=== PATIENT | female | born 1985 | race Caucasian/White ===

== ENCOUNTER → 2022-12-06 | Outpatient (CLI) | payer MEDICAID, SELFPAY ==
--- NOTE | 2022-12-06 13:20 | NEURO_ITS ---
NCS and/or EMG Patient Report Ordering Doctor: Aleks Fletcher DATE OF SERVICE: 12/06/22 Lena presents for electrodiagnostic testing of the upper limbs. She reports numbness and tingling in both hands. Electrodiagnostic findings: Prolonged median motor latency is noted bilaterally with normal amplitudes and reduced conduction velocities. Right and left ulnar motor responses are within normal limits. There is a prolonged right median F- wave. Prolonged median sensory latency at the wrist and palm. Normal ulnar and radial sensory responses. Needle EMG testing shows no evidence of denervation with normal motor unit action potentials. Electrodiagnostic impression: This is an abnormal study in the upper limbs 1. Electrodiagnostic findings are suggestive of bilateral median mononeuropathy. This is consistent with a moderate right carpal tunnel syndrome and a mild to moderate left carpal tunnel syndrome. Multi Select Codes Neurology Neurology Interp Codes: 07744-72 Musc test done w/n test comp (interp) (2) and 68501-65 Nrv cndj test 13/> studies (interp)
== END | disposition home or self-care (01) ==
LOC: PSN 12:02
PROVIDERS: PCP Family Medicine; Referring Provider Orthopaedic Surgery Sports Medicine; Visit Provider Orthopaedic Surgery Sports Medicine
DX: G56.03 Carpal tunnel syndrome, bilateral upper limbs (principal)
CPT/HCPCS: 95886; 95913

== ENCOUNTER 2022-12-27 05:51 | Day surgery (SDC) | payer MEDICAID, SELFPAY ==
[2022-12-27] VITALS (8 sets, daily range): BP systolic 92–119; BP diastolic 64–84; PULSE 74–83; RESP 14–16; TEMP 36.1–36.8; O2SAT 92–100; BMI 45.9
[2022-12-27 06:28] LABS: Internal QC Validated? YES +Cl - CLEAR BKGD; Pregnancy, Urine Negative Negative
[2022-12-27] MEDS: Lactated Ringers 1,000 ML 15 ML IV (06:38)
[2022-12-27] MEDS: Ipratropium/Albuterol Sulfate 3 ML AMPUL.NEB INHALATION (06:54)
--- NOTE | 2022-12-27 06:59 | PCM.HP.STD ---
HPI - General HPI Narrative LENA GONZALEZ, is a 37 F who presents for left endoscopic carpal tunnel release. Patient has no questions. They continue to experience symptoms going into the thumb and index finger. Left upper extremity marked at the wrist. Pros and cons risks and benefits of the surgery as well as postoperative recovery and plan for postoperative pain medications including local anesthetic at the incision site discussed with the patient. Follow-up in 2 days time they have an appointment for that. No changes to history and physical exam. Patient wishes to proceed. MR#: [id number] Acct: [id number] Name: LENA GONZALEZ Rep #: [id number] : 1985 Provider: Dr. Aleks Fletcher MD Age/Sex: 37/F Location: [facility] – [place].[facility] Status: Signed Intake Vital Signs 09/29/2309:46 Height 5 ft 3 in Weight: 260 lb BMI 46.0 Intake Visit Reasons: BL HANDS Chief Complaint: bilateral hand numbness Is patient in pain?: Yes Allergies lactose Allergy (Verified 12/11/22 10:47) Diarrhealatex Allergy (Verified 12/11/22 10:47) Rash Medications ibuprofen 200 mg tablet 200 mg PO Q6H PRN 09/29/22 [History Confirmed 12/11/22] quetiapine 50 mg tablet (Seroquel) 50 mg PO DAILY 09/29/22 [History Confirmed 12/11/22] venlafaxine 37.5 mg capsule,extended release 24 hr (Effexor XR) 37.5 mg PO DAILY 09/29/22 [History Confirmed 12/11/22] PFSH Medical History Bilateral carpal tunnel syndrome Cubital tunnel syndrome on right Family History Mother Hypertension Heart disease Bipolar 1 disorder Depression Anxiety Schizophrenia Social History Smoking Status: Current every day smoker tobacco type: cigarettes alcohol intake: never substance use type: does not use HPI BL HANDS Details: Parts of this documentation were recorded by a scribe, this documentation accurately reflects the service provided and the decisions made by me, Dr. Aleks Fletcher MD 12/11/22 5478. LENA GONZALEZ is a 37 year old F here today for follow-up nerve conduction studies for bilateral carpal tunnel syndrome. first four digits. RHD. worse on left per pt. clumsy. Supplemental Info [facility] Pulmonary Services/Neurology [address] [place] [address] MR#: [id number] Acct: [id number] Name: LENA GONZALEZ Rep #: [id number] : 1985 37 From: Iqra Mills MD Referring Dr: Aleks Fletcher MD Status: REG CLI Location: PSN Date: 12/06/22 Sex: F C NCS and/or EMG Patient Report Ordering Doctor: Aleks Fletcher DATE OF SERVICE: 12/06/22 Lena presents for electrodiagnostic testing of the upper limbs. She reports numbness and tingling in both hands. Electrodiagnostic findings: Prolonged median motor latency is noted bilaterally with normal amplitudes and reduced conduction velocities. Right and left ulnar motor responses are within normal limits. There is a prolonged right median F-wave. Prolonged median sensory latency at the wrist and palm. Normal ulnar and radial sensory responses. Needle EMG testing shows no evidence of denervation with normal motor unit action potentials. Electrodiagnostic impression: This is an abnormal study in the upper limbs 1. Electrodiagnostic findings are suggestive of bilateral median mononeuropathy. This is consistent with a moderate right carpal tunnel syndrome and a mild to moderate left carpal tunnel syndrome. Multi Select Codes Neurology Neurology Interp Codes: 75154-32 Musc test done w/n test comp (interp) (2) and 49899-98 Nrv cndj test 13/> studies (interp) Coding Level of Care Code Off vis,est,level 3 Diagnoses Bilateral carpal tunnel syndrome G56.03 Assessment and Plan Assessment and Plan (1) Bilateral carpal tunnel syndrome: Status: Acute Plan: 37 F with bilateral carpal tunnel syndrome. She feels subjectively its worse on the left although on the nerve studies that is mild to moderate on the left side and moderate on the right side. She would like to start with surgery on the left side as subjectively it is worse for her and she is right-hand dominant. This has been present for 4 years she states. We discussed steroid nonoperative options as well including bracing or injections however she would prefer to proceed with definitive management in the form of left endoscopic carpal tunnel release. Patient does not have diabetes and is not on a blood thinner therefore will not obtain a preoperative clearance. Pros and cons risks and benefits were discussed with the patient including but not limited to infection, pain, stiffness, bleeding, damage to surrounding structures, neurovascular injury, recurrence or retear, failure or wear of hardware or fixation, instability, fracture, deep vein thrombosis and pulmonary embolism, anesthetic risks, , patient dissatisfaction, need for further surgery and other risks. Patient understood and wished to proceed with surgery, and signed the informed consent documentation. [facility] Medical History (Updated 12/20/22 @ 08:46 by Jammie Ho) Anxiety Asthma Back pain Bilateral carpal tunnel syndrome Cubital tunnel syndrome on right Depression Difficulty chewing Gastric reflux History of pain when walking Hypertension Leg cramps Seizures Smoker Wears glasses Home Medications ibuprofen 200 mg tablet 200 mg PO Q6H PRN pain 09/29/22 [History Last Taken Unknown] quetiapine 50 mg tablet (Seroquel) 150 mg PO QHS 09/29/22 [History Last Taken 12/26/22] albuterol sulfate 90 mcg/actuation aerosol inhaler 2 puff inhalation Q4H PRN asthma 12/20/22 [History Last Taken Unknown] sertraline 50 mg tablet 50 mg PO DAILY 12/20/22 [History Last Taken 12/27/22] Allergy/AdvReac Type Severity Reaction Status Date / Time lactose Allergy Diarrhea Verified 12/27/22 06:26 latex Allergy Rash Verified 12/27/22 06:26 Family History Mother Hypertension Heart disease Bipolar 1 disorder Depression Anxiety Schizophrenia Surgical History (Updated 12/20/22 @ 08:46 by Jammie Ho) Hx of tooth extraction Social History Smoking Status: Current every day smoker tobacco type: cigarettes alcohol intake: never substance use type: does not use Vital Signs Vital Signs Vital Signs: 12/27/22 06:27 12/27/22 06:27 Temperature 96.9 F L Temperature Source Temporal Pulse Rate 79 Respiratory Rate 16 Respiratory Pattern Normal Blood Pressure 119/84 H Blood Pressure Mean 95 Blood Pressure Source Monitor Blood Pressure Position Semi-Fowlers Blood Pressure Location Right Arm Pulse Ox 97 Oxygen Delivery Method Room Air Weight Weight: 251 lb 5.231 oz Body Mass Index (BMI) 45.9 Results Lab / Micro Data Labs: Laboratory Results - last 24 hr 12/27/22 06:13: Urine Test Negative
[2022-12-27] MEDS: Cefazolin 2 GM in 0.9% Normal Saline 100 ML IV (07:38)
--- NOTE | 2022-12-27 07:48 | PCM.OPRPT ---
Problems Associated Problem List Diagnoses (1) Bilateral carpal tunnel syndrome: Report of Operation Date of Procedure: 12/27/22 Pre-Operative Diagnosis: left carpal tunnel syndrome Post-Operative Diagnosis: same Surgery/Procedure Performed:: left endoscopic carpal tunnel release Surgeon: Aleks Fletcher Type of Anesthesia: Local and MAC Anesthesiologist: Kumar Espinoza Estimated Blood Loss (mL): 5 Description of Procedure: Patient was brought to the operating room theater.? The patient was administered 2g iv ancef prior to the start of the procedure.? Placed supine on the operating room table.? Anesthesia induced.? SCDs on the legs.? Tourniquet applied to the left upper operative extremity, appropriately padded. Arm table used. Operative extremity prepped and draped in the usual sterile fashion with chlorhexidine-based prep solution allowing over 3 minutes drying time prior to draping.? Preoperative timeout performed to confirm the site patient and the surgery. Limb limb elevated tourniquet inflated to 250 mmHg.? I used the [facility] endoscopic carpal tunnel kit / technique. Exsanguinated limb. 6cc 0.25% bupivicaine at incision site. ? I made a transverse 2 cm incision in line with the? transverse wrist crease.? This was in line with the fourth digit.? I carried the dissection down through skin and subcutaneous tissue achieved meticulous hemostasis. Just ulnar to palmaris tendon.? I incised the antebrachial fascia.? I passed sequential dilators into the carpal tunnel along the radial border of the Guyon's canal aiming for the fourth digit with the hand in extension.? I used a synovial elevator to identify the transverse fibers of the transverse carpal tunnel ligament.? Passed the scope into the carpal tunnel. Once I had identified the full proximal and distal extent of the ligament I fully released the ligament under direct visualization by deploying the blade and slowly withdrawing the scope made sequential passes until I no longer felt tension as well as the entire extent of the ligament was released under direct visualization.? Sounded the tunnel with pineda tenotomy scissors, complete release, no bands. Arthroscope light was more visible through the skin. Pictures taken and saved. Wound thoroughly irrigated.? Tourniquet let down prior to end of the case and meticulous hemostasis achieved.? Thorough irrigation.? ? Incision closed with 3-0 ethilon for the skin.? Steri-Strips were applied after the skin was cleaned and dried. adaptic 4x4 gauze and kb. Patient woken up,? transferred off the operating room table and taken to postanesthetic care unit in stable condition. All sponge needle instrument counts were correct no complications.? Plan for the patient to be discharged home according to day surgery criteria when they are comfortable. Follow-up in the office in 2 days time. Gentle ROM hand and elbow no heavy [place] c[place] 54444 Complications none Admit VTE Documentation VTE Present on Admission: No VTE Mechan Device Prophylaxis: SCD's VTE Pharm Prophylaxis ordered?: No Reason prophylaxis not ordered:: Treatment Not Indicated Multi Select Codes Musculoskeletal Musculoskeletal CPT Codes: Other Procedure See Report
[2022-12-27] MEDS: Bupivacaine 0.25% 30 ML Vial (08:04)
--- NOTE | 2022-12-27 08:09 | DCINST_ITS ---
Discharge Instructions Diet Discharge Diet: No restrictions Activity Keep extremity elevated above heart level: Operative Extremity Additional Activity Instructions:: ROM ok of hand wrist elbow and fingers, no heavy lifting or gripping Dressing / Incision Call your doctor if your incision/area has: Continuous Slow Oozing, Sudden Increased Bleeding, Increased Pain/ Swelling, Increased Redness, Foul Smelling Discharge and Swelling at the incision site Remove Dressing in: leave in place till F/U Cleanse incision/area with: Do not get Incision Wet Follow Up Care Please Follow Up With: Aleks Fletcher MD When: 2 days Test Results: Test results from this visit will be discussed in further detail at your follow- up appointment, if applicable. Discharge Plan Admission Attending Provider: Aleks Fletcher Primary Care Provider: Kirstie Campbell Instructions Patient Instructions: Carpal Tunnel Release Surgery Discharge Orders/Prescriptions Prescriptions: No Action quetiapine [Seroquel] 50 mg tablet 150 mg PO QHS ibuprofen 200 mg tablet 200 mg PO Q6H PRN (Reason: pain) sertraline 50 mg tablet 50 mg PO DAILY Patient Comments: take 1/2 fo a a tablet for 7 days, on day 8 increase to 1 tablet a day albuterol sulfate 90 mcg/actuation HFA aerosol inhaler 2 puff inhalation Q4H PRN (Reason: asthma) Referrals / Follow Up: Kirstie Campbell DO [Primary Care Provider] - Aleks Fletcher MD [Med Staff - Active Staff] - Disposition Disposition (needs filled in before D/C Order can be placed): Home, Self Care
[2022-12-27] MEDS: HYDROcodone Bitartrate/Apap 5/325 Tablet PO (09:07)
== END 2022-12-27 09:11 | disposition home or self-care (01) ==
LOC: SDC 05:52 → AC 05:53
PROVIDERS: Anesthesiology; PCP Family Medicine; Referring Provider Orthopaedic Surgery Sports Medicine; Visit Provider Orthopaedic Surgery Sports Medicine
PROC: (CPT 29848; principal; 2022-12-27 07:15)
DX: G56.03 Carpal tunnel syndrome, bilateral upper limbs (principal); I10 Essential (primary) hypertension; F17.210 Nicotine dependence, cigarettes, uncomplicated; J45.909 Unspecified asthma, uncomplicated; Z79.899 Other long term (current) drug therapy
CPT/HCPCS: 29848; 01810; 81025; 94640; J7120; J2405

== ENCOUNTER 2023-03-21 05:59 | Day surgery (SDC) | payer MEDICAID, SELFPAY ==
[2023-03-21 06:20] LABS: Internal QC Validated? YES +Cl - CLEAR BKGD; Pregnancy, Urine Negative Negative
[2023-03-21] MEDS: Lactated Ringers 1,000 ML 15 ML IV (06:26)
[2023-03-21 06:27] VITALS: BP 114/87; PULSE 84; RESP 18; TEMP 36.1; O2SAT 99; BMI 47.2
--- NOTE | 2023-03-21 07:03 | PCM.HP.STD ---
HPI - General HPI Narrative LENA GONZALEZ, is a 37 F who presents for right endoscopic carpal tunnel release. no changes to h and p. OK to proceed. wrist marked. narcotic counselling, rab done. MR#: [id number] Acct: [id number] Name: LENA GONZALEZ Rep #: [id number] : 1985 Provider: Dr. Aleks Fletcher MD Age/Sex: 37/F Location: [facility] [place].[facility] Status: Signed Intake Vital Signs 12/27/2305:27 Height 5 ft 2 in Intake Visit Reasons: right hand Chief Complaint: right hand Accompanied by: Self Is patient in pain?: Yes Pain scale (1-10): 5 Allergies lactose Allergy (Verified 02/09/23 10:16) Diarrhealatex Allergy (Verified 02/09/23 10:16) Rash Medications ibuprofen 200 mg tablet 200 mg PO Q6H PRN pain 09/29/22 [History Confirmed 03/05/23] quetiapine 50 mg tablet (Seroquel) 150 mg PO QHS 09/29/22 [History Confirmed 03/05/23] albuterol sulfate 90 mcg/actuation aerosol inhaler 2 puff inhalation Q4H PRN asthma 12/20/22 [History Confirmed 03/05/23] sertraline 50 mg tablet 50 mg PO DAILY 12/20/22 [History Confirmed 03/05/23] cariprazine 1.5 mg capsule (Vraylar) 1.5 mg PO DAILY 02/09/23 [History Confirmed 03/05/23] PFSH Medical History Anxiety Asthma Back pain Bilateral carpal tunnel syndrome Cubital tunnel syndrome on right Depression Difficulty chewing Gastric reflux History of pain when walking Hypertension Leg cramps Seizures Smoker Wears glasses Surgical History Hx of tooth extraction Family History Mother Hypertension Heart disease Bipolar 1 disorder Depression Anxiety Schizophrenia Social History Smoking Status: Current every day smoker tobacco type: cigarettes alcohol intake: never substance use type: does not use HPI right hand Details: Parts of this documentation were recorded by a scribe, this documentation accurately reflects the service provided and the decisions made by me, Dr. Aleks Fletcher MD 03/05/23 0913. LENA GONZALEZ is a 37 year old F here today for FU bilat CTS. 9-week follow-up of a left endoscopic carpal tunnel release. Patient is doing well on the left side. Still some mild pillar pain when gripping a laundry basket but that happy and satisfied with how the operation is gone. They are desiring to have the same operation on the right side of the thumb index and middle finger somewhat into the ring goes numb. Ortho Exam General General: Yes no acute distress Neurologic: Yes alert and Yes oriented x3 Psychologic: Yes reasonable and appropriate Right Wrist/Hand Skin/Wound: Yes CDI, No Ecchymosis and Yes nail intact Right Wrist: Yes ROM-Extension 0-60, ROM-Flexion 0-80, ROM-Pronation 0-80, ROM-Supination 0-90, Tinel's, Phalen's and Thenar Atrophy; No Hypothenar Atrophy Motor: EPL: 5, FDP-2: 5, 1st Dorsal Interosseous: 5 and APB: 5 Sensation: Radial: I, Ulnar: I and Median: D WRIST: neg tinels at elbow Left Wrist/Hand Skin/Wound: Yes CDI, Yes healed, No Ecchymosis, No nail intact, Yes capillary refill normal and No erythema Motor: EPL: 5, FDP-2: 5, 1st Dorsal Interosseous: 5 and APB: 5 Sensation: Radial: I, Ulnar: I and Median: I Supplemental Info DATE OF SERVICE: 12/06/22 Lena presents for electrodiagnostic testing of the upper limbs. She reports numbness and tingling in both hands. Electrodiagnostic findings: Prolonged median motor latency is noted bilaterally with normal amplitudes and reduced conduction velocities. Right and left ulnar motor responses are within normal limits. There is a prolonged right median F-wave. Prolonged median sensory latency at the wrist and palm. Normal ulnar and radial sensory responses. Needle EMG testing shows no evidence of denervation with normal motor unit action potentials. Electrodiagnostic impression: This is an abnormal study in the upper limbs 1. Electrodiagnostic findings are suggestive of bilateral median mononeuropathy. This is consistent with a moderate right carpal tunnel syndrome and a mild to moderate left carpal tunnel syndrome. Coding Level of Care Code Off vis,est,level 3 Diagnoses Bilateral carpal tunnel syndrome G56.03 Assessment and Plan Assessment and Plan (1) Bilateral carpal tunnel syndrome: Status: Acute Plan: 29-year-old female following up bilateral carpal tunnel syndrome 9 weeks following up left endoscopic carpal tunnel release good results there. The patient wished to go ahead with the right endoscopic carpal tunnel release, so we talked about the pros and cons risk benefits of that and signed the consent form today. Patient understood no further questions or concerns. Pros and cons risks and benefits were discussed with the patient including but not limited to infection, pain, stiffness, bleeding, damage to surrounding structures, neurovascular injury, recurrence or retear, failure or wear of hardware or fixation, instability, fracture, deep vein thrombosis and pulmonary embolism, anesthetic risks, , patient dissatisfaction, need for further surgery and other risks. Patient understood and wished to proceed with surgery, and signed the informed consent documentation. [facility] Medical History Anxiety Asthma Back pain Bilateral carpal tunnel syndrome Cubital tunnel syndrome on right Depression Difficulty chewing Gastric reflux History of pain when walking Hypertension Leg cramps Seizures Smoker Wears glasses Home Medications ibuprofen 200 mg tablet 200 mg PO Q6H PRN pain 09/29/22 [History Last Taken Unknown] quetiapine 50 mg tablet (Seroquel) 150 mg PO QHS 09/29/22 [History Last Taken 12/26/22] albuterol sulfate 90 mcg/actuation aerosol inhaler 2 puff inhalation Q4H PRN asthma 12/20/22 [History Last Taken 03/21/23] sertraline 50 mg tablet 50 mg PO DAILY 12/20/22 [History Last Taken 12/27/22] cariprazine 1.5 mg capsule (Vraylar) 1.5 mg PO DAILY 02/09/23 [History Last Taken Unknown] Allergy/AdvReac Type Severity Reaction Status Date / Time lactose Allergy Diarrhea Verified 03/14/23 10:05 latex Allergy Rash Verified 03/14/23 10:05 Family History Mother Hypertension Heart disease Bipolar 1 disorder Depression Anxiety Schizophrenia Surgical History Hx of tooth extraction Social History Smoking Status: Current every day smoker tobacco type: cigarettes alcohol intake: never substance use type: does not use Vital Signs Vital Signs Vital Signs: 03/21/23 06:27 03/21/23 06:27 Temperature 97 F L Temperature Source Temporal Pulse Rate 84 Respiratory Rate 18 Respiratory Pattern Normal Blood Pressure 114/87 H Blood Pressure Mean 96 Blood Pressure Source Monitor Blood Pressure Position Semi-Fowlers Blood Pressure Location Right Arm Pulse Ox 99 Oxygen Delivery Method Room Air Weight Weight: 258 lb Body Mass Index (BMI) 47.2 Results Lab / Micro Data Labs: Laboratory Results - last 24 hr 03/21/23 06:05: Urine Test Negative
[2023-03-21] MEDS: Cefazolin 2 GM in 0.9% Normal Saline (100mL Bag) 100 ML IV (07:37)
[2023-03-21] MEDS: Bupivacaine 0.25% 30 ML Vial (07:46)
--- NOTE | 2023-03-21 07:56 | OP.PCM_ITS ---
Problems Associated Problem List Diagnoses (1) Bilateral carpal tunnel syndrome: Report of Operation Date of Procedure: 03/21/23 Pre-Operative Diagnosis: right carpal tunnel syndrome Post-Operative Diagnosis: same Surgery/Procedure Performed:: right endoscopic carpal tunnel release Surgeon: Aleks Fletcher Type of Anesthesia: Local and MAC/Supplemental/Local Anesthesiologist: Anthony Coon Estimated Blood Loss (mL): 10 Description of Procedure: atient was brought to the operating room theater.? The patient was administered 2g iv ancef prior to the start of the procedure.? Placed supine on the operating room table.? Anesthesia induced.? SCDs on the legs.? Tourniquet applied to the right upper operative extremity, appropriately padded. Arm table used. Operative extremity prepped and draped in the usual sterile fashion with chlorhexidine- based prep solution allowing over 3 minutes drying time prior to draping.? Preoperative timeout performed to confirm the site patient and the surgery. I used the [facility] endoscopic carpal tunnel kit / technique. 6cc 0.25% bupivicaine at incision site. ? I made a transverse 2 cm incision in line with the? transverse wrist crease.? This was in line with the fourth digit.? I carried the dissection down through skin and subcutaneous tissue achieved meticulous hemostasis. Just ulnar to palmaris tendon.? I incised the antebrachial fascia.? I passed sequential dilators into the carpal tunnel along the radial border of the Guyon's canal aiming for the fourth digit with the hand in extension. I used a synovial elevator to identify the transverse fibers of the transverse carpal tunnel ligament.? Passed the scope into the carpal tunnel. Once I had identified the full proximal and distal extent of the ligament I fully released the ligament under direct visualization by deploying the blade and slowly withdrawing the scope made sequential passes until I no longer felt tension as well as the entire extent of the ligament was released under direct visualization.? Sounded the tunnel with pineda tenotomy scissors, complete release, no bands. Arthroscope light was more visible through the skin. Pictures taken and saved before and after release. Wound thoroughly irrigated.? Tourniquet let down prior to end of the case and meticulous hemostasis achieved.? Thorough irrigation.? ? Incisions closed with 3-0 nylon for the skin.?Skin was cleaned and dried. adaptic 4x4 gauze and kb. Patient woken up,? transferred off the operating room table and taken to postanesthetic care unit in stable condition. All sponge needle instrument counts were correct no complications.? Plan for the patient to be discharged home according to day surgery criteria when they are comfortable. Follow-up in the office in 2 days time. Gentle ROM hand and elbow no heavy lifting. cpt 32437 Complications none Admit VTE Documentation VTE Present on Admission: No VTE Mechan Device Prophylaxis: SCD's VTE Pharm Prophylaxis ordered?: No Reason prophylaxis not ordered:: Treatment Not Indicated Procedures Musculoskeletal 20xxx-29xxx: 88143 WRIST ENDOSCOPY/SURGERY
--- NOTE | 2023-03-21 07:58 | DCINST_ITS ---
Discharge Instructions Diet Discharge Diet: No restrictions Activity May resume sexual activity in: No Restrictions Ice area for (Minutes): 10 Lifting Restrictions: no heavy lifting or grasping Keep extremity elevated above heart level: Operative Extremity Dressing / Incision Call your doctor if your incision/area has: Continuous Slow Oozing, Sudden Incr eased Bleeding, Increased Pain/ Swelling, Increased Redness, Foul Smelling Discharge and Swelling at the incision site Change Dressing in: leave in place till F/U Follow Up Care Please Follow Up With: Aleks Fletcher MD When: 2 days Test Results: Test results from this visit will be discussed in further detail at your follow- up appointment, if applicable. Discharge Plan Admission Attending Provider: Aleks Fletcher Primary Care Provider: Harris Garcia [facility] Discharge Orders/Prescriptions Prescriptions: New oxycodone-acetaminophen [Percocet] 5-325 mg tablet 1 tab PO Q8H MDD 6 PRN (Reason: pain) 3 Days Qty: 14 0RF No Action quetiapine [Seroquel] 50 mg tablet 150 mg PO QHS ibuprofen 200 mg tablet 200 mg PO Q6H PRN (Reason: pain) Vraylar 1.5 mg capsule 1.5 mg PO DAILY sertraline 50 mg tablet 50 mg PO DAILY Patient Comments: take 1/2 fo a a tablet for 7 days, on day 8 increase to 1 tablet a day albuterol sulfate 90 mcg/actuation HFA aerosol inhaler 2 puff inhalation Q4H PRN (Reason: asthma) Referrals / Follow Up: Kirstie Campbell DO [Med Staff - Bilingual Administrative Assistant] - Aleks Fletcher MD [Med Staff - Active Staff] - Disposition Disposition (needs filled in before D/C Order can be placed): Home, Self Care
[2023-03-21 08:05] VITALS: BP 114/87; BP 116/97; PULSE 84; RESP 12; TEMP 36.2; O2SAT 96
[2023-03-21 08:10] VITALS: BP 101/56; BP 114/87; PULSE 77; RESP 14; O2SAT 92
[2023-03-21 08:15] VITALS: BP 114/87; BP 88/50; PULSE 78; RESP 14; O2SAT 92
[2023-03-21 08:25] VITALS: BP 106/96; BP 114/87; PULSE 75; RESP 16; TEMP 36.4; O2SAT 95
[2023-03-21 08:51] VITALS: BP 114/87
== END 2023-03-21 08:52 | disposition home or self-care (01) ==
LOC: SDC 05:59 → AC 06:01
PROVIDERS: Anesthesiology; PCP Nurse Practitioner Family; Referring Provider Orthopaedic Surgery Sports Medicine; Visit Provider Orthopaedic Surgery Sports Medicine
PROC: (CPT 29848; principal; 2023-03-21 07:15)
DX: G56.03 Carpal tunnel syndrome, bilateral upper limbs (principal); I10 Essential (primary) hypertension; J45.909 Unspecified asthma, uncomplicated; F17.210 Nicotine dependence, cigarettes, uncomplicated; Z79.899 Other long term (current) drug therapy
CPT/HCPCS: 29848; 01830; 81025; J7120; J2405